=== PATIENT | male | born 1995 | race African-American/Black ===

== ENCOUNTER 2021-06-19 02:47 | Emergency (ER) | payer OTHER ==
[~2021-06-19] VITALS: Ht 175.3 cm; Wt 68.0 kg
[2021-06-19 03:18] LABS: RED BLOOD COUNT 4.55 M/UL (4.20-5.50); WHITE BLOOD COUNT 7.1 K/UL (4.5-11.0)
[2021-06-19 03:32] LABS: BUN/CREATININE RATIO 9 (0-10)
[2021-06-19 16:43] LABS: BUN/CREATININE RATIO 8 (0-10)
[2021-06-19] MEDS ORDERED: COLCHICINE 0.60.6 MG PO (17:31)
[2021-06-19] MEDS ORDERED: PROTONIX20 MG PO (17:31)
== END 2021-06-19 18:15 ==
LOC: ER1 02:47 → CDU 05:18 → ER1 05:18
PROVIDERS: Internal Medicine; Physician Assistant
DX: T40.7X1A Poisoning by cannabis (derivatives), accidental (unintentional), initial encounter (principal); I95.9 Hypotension, unspecified; I48.91 Unspecified atrial fibrillation; G92 Toxic encephalopathy; N17.9 Acute kidney failure, unspecified; E87.2 Acidosis; Z20.822 Contact with and (suspected) exposure to COVID-19
CPT/HCPCS: ECHO; 36600; 51701; 71045; 80048; 80053; 80307; 81001; 82550; 82553; 82803; 82962; 83605; 83735; 83874; 83880; 84439; 84443; 84484; 85025; 85652; 86140; 93005; 93306; 94760; 99285; G0378; J2060; U0002